=== PATIENT | male | born 2000 | race Native Hawaiian/Other Pacific Islander ===

== ENCOUNTER 2022-12-06 07:10 | Emergency (ER) | payer OTHER ==
[~2022-12-06] VITALS: Ht 172.7 cm; Wt 63.5 kg
[2022-12-06 07:10] VITALS: TEMP 97.6
[2022-12-06 08:21] LABS: PLATELET COUNT 680 K/uL (142-355)
[2022-12-06 08:28] LABS: POTASSIUM 3.5 mmol/L (3.6-5.2)
[2022-12-06 10:02] VITALS: BP 105/75
== END 2022-12-06 10:02 | disposition short-term general hospital (02) ==
LOC: ED 07:16
PROVIDERS: Family Medicine
DX: E10.10 Type 1 diabetes mellitus with ketoacidosis without coma (principal); E87.6 Hypokalemia; E87.0 Hyperosmolality and hypernatremia
CPT/HCPCS: 36600; 80053; 80307; 81002; 82150; 82805; 83605; 83690; 85027; 87040; 96361; 96365; 96375; 99285; J1815; J2270; J2405; J3490